=== PATIENT | male | born 1955 | race Caucasian/White ===

== ENCOUNTER → 2019-11-04 | Outpatient (CLI) | payer OTHER ==
[~2019-11-04] MED LIST: ASPIRIN 81M81 MG/TA2 PO; DOXYCYCLINE 10100 MG PO; GLUCOPHAGE500 MG/TAB PO; LIPITOR20 MG PO; PRILOSEC 20MG20 MG PO; PRINIVIL10 MG PO; ZYRTEC 10MG10 MG PO
== END ==
LOC: COL.RAD 07:12
DX: D18.09 Hemangioma of other sites (principal); K76.89 Other specified diseases of liver
CPT/HCPCS: Q9967

== ENCOUNTER 2020-06-18 14:58 | Outpatient (CLI) | payer OTHER ==
[~2020-06-18] VITALS: Ht 177.8 cm; Wt 82.7 kg
[2020-06-18] VITALS (8 sets, daily range): BP systolic 102–122; BP diastolic 67–81; PULSE 64–78; TEMP 98.4
[2020-06-18] MEDS ORDERED: BENADRYL25 M2 PO (15:39)
[2020-06-18] MEDS ORDERED: TESTOSTERONE IM (15:43)
--- NOTE | 2020-06-18 17:00 | NUR ---
Pt tolerated his infusion very well without any adverse reaction. Pt is amb to exit with brisk steady gait.
== END 2020-06-18 17:00 | disposition home or self-care (01) ==
LOC: EUO 14:58
DX: U07.1 COVID-19 (principal)
CPT/HCPCS: J7050